=== PATIENT | female | born 1955 | race Caucasian/White ===

== ENCOUNTER → 2016-10-11 | Outpatient (CLI) | payer OTHER ==
--- NOTE | 2016-10-11 15:24 | DX ---
DEXA Bone Mineral Densitometry Clinical Indications: Postmenopausal. History of prior hip surgery. Follow-up. Comparison: December 2012 Technique: Bone Mineral Densitometry (BMD) by Dual Energy X-Ray Absorptiometry (DEXA) was performed utilizing the [employer] scanner. The lumbar spine was evaluated in the AP projection. The bilat eral hips and forearm were evaluated in the AP projection. Vertebral fracture assessment was also pe rformed. AP Lumbar Spine: The L1, L2, L3 and L4 vertebral bodies were evaluated. BMD: 1.146 gm/cm2 T-score: -0.4 SD Z-score: 1.4 SD 4% decrease AP left Hip: Neck BMD: 0.651 gm/cm2 T-score: -2.8 SD Z-score: -1.2 SD 9% decrease AP left Forearm, 09/24: BMD: 0.762 gm/cm2 T-score: -1.3 SD Z-score: -0.1 SD 7% decrease Vertebral Fracture Assessment: No significant fracture deformity. Conclusion: Considering the lowest measured site, the patient is osteoporotic. The ten year risk for any major osteoporotic fracture is 23.4% and for a hip fracture is 3.5%. Any bone loss in this patient is probably related to aging or estrogen deficiency. Consider excluding secondary metabolic causes of bone loss (reported to be present in as many as 30% of patients with normal Z scores). Laboratory evaluation might include hydroxy vitamin D3 level, TSH, PTH, calcium, 24-hour urine calcium, phosphorous, albumin, creatinine, alkaline phosphatase, serum e lectrophoresis (SPEP or UPEP), anti-tissue transglutaminase antibody levels (celiac disease) and CBC . If secondary causes are excluded, then consider initiating treatment with a bisphosphonate (such a s Fosamax, Actonel or Boniva). If the patient is unable to use an oral bisphosphonate, another agent such as IV bisphosphonates (Boniva or Reclast), teriparatide (Forteo), or a selective estrogen recept or modulator (Evista) might be considered. Supplementing an insufficient diet to achieve total intakes of 1500 mg calcium and 800 International Units of vitamin D daily should be considered. Osteoporosis prevention and treatment begins by modify ing risk factors. The patient should be encouraged to participate in a regular exercise program that includes weightbearing and muscle strengthening regimens, as is clinically appropriate. Recommend follow-up DEXA in one year to assess the efficacy of pharmacologic intervention and/or alie ection of appropriate secondary cause.
== END ==
LOC: FIMAGING 10:13
PROVIDERS: ATTEND Obstetrics & Gynecology
DX: Z13.820 Encounter for screening for osteoporosis (principal); M81.0 Age-related osteoporosis without current pathological fracture; Z78.0 Asymptomatic menopausal state

== ENCOUNTER → 2017-11-06 | Outpatient (CLI) | payer OTHER | LOC: CIMAGING 17:59 | PROVIDERS: ATTEND Family Medicine | DX: R22.31 Localized swelling, mass and lump, right upper limb (principal) | CPT/HCPCS: 73000-PO ==